=== PATIENT | female | born 1965 | race Caucasian/White ===

== ENCOUNTER 2017-03-20 10:51 | Day surgery (SDC) | payer MEDICARE, OTHER ==
[~2017-03-20] VITALS: Ht 167.6 cm; Wt 85.0 kg
[~2017-03-20 10:51] MED LIST: ASEN5TAB7 SL; CLOZ200T PO; DIVA500T7 PO; FERR-55 PO; FURO20TA3 PO; LEVE-5 PO; LEVO88TA3 PO; LORA0.5T PO; LOSA100T7 PO; OXYB5SYR2 PO; PROP10TA6 PO
[2017-03-20 12:22] VITALS: Ht 167.6 cm; Wt 85.0 kg
[2017-03-20] MEDS ORDERED: ZOLP10TA PO (12:44)
[2017-03-20] MEDS ORDERED: FERR324T11 PO (12:44)
[2017-03-20] MEDS ORDERED: TRAZ50TA18 PO (12:44)
[2017-03-20] MEDS ORDERED: ALBU8.5H3 INH (12:44)
[2017-03-20] MEDS ORDERED: CARI1.5C PO (12:44)
[2017-03-20] MEDS ORDERED: AMLO2.5T78 PO (12:44)
[2017-03-20] MEDS ORDERED: ASPI-664 PO (12:44)
[2017-03-20] MEDS ORDERED: DOCU240C14 PO (12:44)
[2017-03-20] MEDS ORDERED: DIVA-16 PO (12:44)
[2017-03-20] MEDS ORDERED: CARV3.1260 PO (12:44)
[2017-03-20] MEDS ORDERED: ADV50050 INHALATION (12:44)
[2017-03-20] MEDS ORDERED: LORA5SOL74 PO (12:44)
[2017-03-20] MEDS ORDERED: CLOZ200T PO (12:44)
[2017-03-20] MEDS ORDERED: LIDOCAINE 2% (SDV) 5 ML INJ ONE (13:02)
[2017-03-20] MEDS ORDERED: PROPOFOL 20 ML ONE (13:02)
[2017-03-20] MEDS ORDERED: FENTAnyl 50 MCG/ML VIAL ONE (13:03)
[2017-03-20 13:12] VITALS: BP 150/82; PULSE 71; RESP 20
--- NOTE | 2017-03-20 14:13 | GILP ---
DATE OF PROCEDURE: 03/20/2017 NAME OF PROCEDURES: 1. Esophagogastroduodenoscopy and biopsy. 2. Colonoscopy. SURGEON: Inocencio Lund MD PREOPERATIVE DIAGNOSES: 1. Abdominal pain. 2. Screening colonoscopy. POSTOPERATIVE DIAGNOSES: 1. Gastric ulcer on the antrum and biopsies were taken for histopathology. 2. Gastritis. 3. Poor prep making the exam incomplete and inadequate. INDICATION FOR THE PROCEDURE: Ms. Alecia Chavira is a 51-year-old female patient who had upper abdo miguel ángel pain, not responding to therapy. She also needed a screening colonoscopy. The procedures and possible complications were well explained to the patient, she understood and con sented to the procedures. DESCRIPTION OF PROCEDURE: Under the influence of anesthesia, the gastroscope was carefully introduc ed into the esophagus and under direct vision, it was advanced to the stomach and through the pyloru s into the duodenal bulb and descending duodenum. FINDINGS: ESOPHAGUS: The mucosa was normal. STOMACH: The patient had gastritis. She also had ulcer on the gastric antrum and biopsies were alexus en for histopathology. DUODENUM: Normal. The colonoscope was carefully introduced in the rectum and under direct vision, it was advanced to t he proximal part of the colon. FINDINGS: The patient had poor prep with solid stool preventing complete colonoscopy. The exam was also very inadequate because of the poor prep. She tolerated the procedures very well and there was no complication from the procedures. At the en d of the procedures, she was awake with stable vital signs and she was discharged home to the care o f her family. IMPRESSION: 1. Gastric ulcer in the antrum. Biopsies were taken for histopathology. 2. Gastritis. 3. Poor prep making the exam incomplete and inadequate. PLAN: 1. Omeprazole 40 mg p.o. q.a.m. 2. Await histopathology report. 3. The patient will need repeat colonoscopy with better preparation. Dictated By: INOCENCIO LUND MD GD/NTS Conf#: [id number] DID#: [id number] CC: INOCENCIO LUND MD;*End*
[2017-03-20 14:27] VITALS: BP 136/64; PULSE 74; RESP 12
== END 2017-03-20 18:26 | disposition home or self-care (01) ==
LOC: GIL 10:51
PROVIDERS: ATTEND Internal Medicine Gastroenterology
DX: Z12.11 Encounter for screening for malignant neoplasm of colon (principal); K29.30 Chronic superficial gastritis without bleeding; K25.9 Gastric ulcer, unspecified as acute or chronic, without hemorrhage or perforation; I10 Essential (primary) hypertension
CPT/HCPCS: 43239; 88305; 88312; G0121; J3010